=== PATIENT | female | born 1960 | race Caucasian/White ===

== ENCOUNTER 2018-05-25 08:50 | Emergency (ER) | payer MEDICARE ==
[~2018-05-25] VITALS: Ht 175.3 cm; Wt 90.7 kg
[~2018-05-25 08:50] MED LIST: BIOT25006 PO; BUPR300T4 PO; CETI10TA22 PO; CYCL10TA2 PO; FENO134C PO; HYDR-3165 PO; IBUP200T77 PO; IRON150C15 PO; LISI1TAB7 PO; METF500T9 PO; OMEG500C PO; TRAM50TA PO; WARF-78 PO; Warfarin Sodium MC
[2018-05-25 09:09] VITALS: BP 130/62
--- NOTE | 2018-05-25 09:38 | PHYS DOC ---
Past Medical History Past Medical History: Diabetes-Type II, High Cholesterol, Hypertension, Other Additional Past Medical Histor: MUSCULAR DYSTROPHY Past Surgical History: Cholecystectomy, Hysterectomy, Other Additional Past Surgical Histo: samantha in right femur and screw right hip Alcohol Use: None Drug Use: None Adult General Chief Complaint Chief Complaint: WRIST PAIN HPI HPI Patient is a 58 year old female with history of diabetes type 2, hypertension, high cholesterol, who presents to the ED today complaining of intermittent 4 out of 10 sharp right wrist pain that has been going on for week. Patient denies any known injury. She states she's had a couple tunnel to the same wrist before. She states she can wear the splint which she already has on that alleviates the pain to some point. She states turning the wrist [id number] worsens the pain. Review of Systems Review of Systems Constitutional: Denies fever or chills [] Musculoskeletal: Reports right wrist pain Integument: Denies rash or skin lesions [] Neurologic: Denies headache, focal weakness or sensory changes [] All other systems were reviewed and found to be within normal limits, except as documented in this note. Allergies Allergies Allergies Coded Allergies Type Severity Reaction Last Updated Verified codeine Allergy Severe 07/29/15 Yes Physical Exam Physical Exam Constitutional: Well developed, well nourished, no acute distress, non-toxic appearance. [] Skin: Warm, dry, no erythema, no rash. [] Back: No tenderness, no CVA tenderness. [] Extremities: Right wrist with no obvious deformity. The diffuse tenderness throughout to the right wrist, no point tenderness to the scaphoid. Unable to tolerate Phalen test and positive Tinel signs. Adequate radial, medial, ulnar sensation to the right wrist. +2 right radial pulse. Cap refill less than 2 seconds the right fingers. Neurologic: Alert and oriented X 3, normal motor function, normal sensory function, no focal deficits noted. [] Psychologic: Affect normal, judgement normal, mood normal. [] Current Patient Data Vital Signs Vital Signs Date Time Temp Pulse Resp B/P (MAP) Pulse Ox O2 Delivery O2 Flow Rate FiO2 05/25/18 09:09 98.3 58 18 130/62 (84) 98 Room Air 98.3 EKG EKG [] Radiology/Procedures Radiology/Procedures []PROCEDURE: WRIST 3V RIGHT 3 view study of the right wrist Clinical indications: Right wrist pain. No known injury. FINDINGS: No acute fracture or dislocation is evident. There is mild primary degenerative osteoarthritis of the first carpal metacarpal joint no widening of the scaphoid lunate joint or the lunate triquetrum joint is seen. Negative ulnar variance is seen. IMPRESSION: Mild primary degenerative osteoarthritis of the first carpal metacarpal joint. No acute fracture. There are small radiolucencies of the distal right radial metadiaphysis. A few of these are located within the cortex. This finding may be seen with osteoporosis. Electronically signed by: Costa Whitman MD (05/25/2018 10:29 AM) [facility] DICTATED and SIGNED BY: COSTA WHITMAN MD DATE: 05/25/18 1029 Course & Med Decision Making Course & Med Decision Making Pertinent Labs and Imaging studies reviewed. (See chart for details) This is a 58-year-old female patient presenting to the ED today with right wrist pain, no known injury. Right wrist x-rays interpreted by radiologist were negative for any acute findings, noted for osteoporosis. Patient already has a splint for the right wrist, neurovascular exam done by me is intact. Ice elevation encouraged. OTC pain relievers. Follow-up with orthopedic doctor in 1-2 weeks. Dragon Disclaimer Dragon Disclaimer This electronic medical record was generated, in whole or in part, using a voice recognition dictation system. Departure Departure Impression: Primary Impression: Osteoporosis Additional Impression: Wrist pain, right Disposition: 01 HOME, SELF-CARE Condition: STABLE Referrals: LEX OBRIEN MD (PCP) DEREJE STAHL II, MD follow up in 1 week Patient Instructions: Osteoporosis, Wrist Pain, [id number] Additional Instructions: You were seen for right wrist pain and noted to have osteoporosis in your right wrist. Please follow-up with the provided orthopedic doctor. Consider increasing dietary calcium intake, consider taking over the counter Calcium with vitamin D intake. Problem Qualifiers Primary Impression: Osteoporosis Osteoporosis type: unspecified Presence of current pathological fracture: unspecified Qualified Codes: M81.0 - Age-related osteoporosis without current pathological fracture IFTIKHAR ALLEN APRN May 25, 2018 09:38
--- NOTE | 2018-05-25 10:32 | RAD ---
3 view study of the right wrist Clinical indications: Right wrist pain. No known injury. FINDINGS: No acute fracture or dislocation is evident. There is mild primary degenerative osteoarthritis of the first carpal metacarpal joint no widening of the scaphoid lunate joint or the lunate triquetrum joint is seen. Negative ulnar variance is seen. IMPRESSION: Mild primary degenerative osteoarthritis of the first carpal metacarpal joint. No acute fracture. There are small radiolucencies of the distal right radial metadiaphysis. A few of these are located within the cortex. This finding may be seen with osteoporosis. Electronically signed by: Vamshi Whitman MD (05/25/2018 10:29 AM) [id number]
== END 2018-05-25 11:11 | disposition home or self-care (01) ==
LOC: ER 08:50
DX: M25.531 Pain in right wrist (principal); M81.0 Age-related osteoporosis without current pathological fracture; M18.9 Osteoarthritis of first carpometacarpal joint, unspecified; E11.9 Type 2 diabetes mellitus without complications; I10 Essential (primary) hypertension; E78.00 Pure hypercholesterolemia, unspecified; Z88.5 Allergy status to narcotic agent
CPT/HCPCS: 73110; 99284